=== PATIENT | female | born 1950 | race Caucasian/White ===

== ENCOUNTER → 2016-10-09 | Outpatient (CLI) | payer OTHER ==
[2016-10-09 10:30] LABS: BILIRUBIN,TOTAL 0.5 mg/dL (0.3-1.2); BUN/CREATININE RATIO 13.63 (6-20); CALCIUM 9.1 mg/dL (8.7-10.7); CREATININE 1.1 mg/dL (0.50-1.20); LDL CHOLESTEROL,CALCULATED 43.6 mg/dL; POTASSIUM 4.1 meq/L (3.8-5.2); TOTAL PROTEIN 6.5 g/dL (6.1-8.0)
[2016-10-09 10:31] LABS: HEMOGLOBIN A1C 7.38 % (4.2-6.0); MEAN BLOOD GLUCOSE (CALC) 159.754 mg/dL
== END ==
LOC: MOB LAB 07:59
PROVIDERS: ATTEND Internal Medicine
DX: E08.8 Diabetes mellitus due to underlying condition with unspecified complications (principal); E78.2 Mixed hyperlipidemia; I10 Essential (primary) hypertension; R09.89 Other specified symptoms and signs involving the circulatory and respiratory systems
CPT/HCPCS: 36415; 80048; 80061; 80076; 83036

== ENCOUNTER → 2016-10-11 | Outpatient (CLI) | payer OTHER | LOC: MMPC 10:00 | PROVIDERS: ATTEND Neurological Surgery | DX: M54.5 Low back pain (principal); G62.9 Polyneuropathy, unspecified; E53.8 Deficiency of other specified B group vitamins | CPT/HCPCS: 99212; G0463 ==

== ENCOUNTER → 2016-10-17 | Outpatient (CLI) | payer OTHER | LOC: MOB LAB 07:48 | PROVIDERS: ATTEND Internal Medicine | DX: R79.89 Other specified abnormal findings of blood chemistry (principal) | CPT/HCPCS: 36415; 83921 ==

== ENCOUNTER → 2016-10-19 | Outpatient (CLI) | payer OTHER ==
--- NOTE | 2016-10-22 12:20 | DI ---
SPECT/CT C-SPINE W/O CONTRAST,10/19/2016 11:27 AM: Clinical History: Cervical facet arthropathy. Previous Exam: MRI lumbar spine performed August 15, 2016 Radiopharmaceutical: 30.4 mCi of technetium 99m MDP. Findings: Multiple helically acquired CT images are obtained through the cervical spine without contrast. There are few calcified granulomas. A few peripheral vascular calcifications are seen. There are a few coronary artery calcifications seen. Minimal degenerative changes of the spine are seen to include some facet arthropathy at the T7 level. Patient is status post cholecystectomy. Moderate stool is noted throughout the colon. There is some increased uptake involving the right wrist and both elbows. There is some focal increas ed uptake of the left elbow. The abdomen demonstrates a normal noncontrast appearance. There are some mild degenerative changes of the pelvis. There is increased uptake involving the talus of the right ankle. There is moderate stool throughout the colon. There are coronary artery calcifications and peripheral vascular calcifications. The paranasal sinuses are unremarkable. Impression: 1. Increased uptake involving the right talus. 2. Mild degenerative changes of the hallux bilaterally. 3. Mild degenerative changes of the elbows and wrists.
== END ==
LOC: NM 11:24
PROVIDERS: ATTEND Neurological Surgery
DX: M54.2 Cervicalgia (principal); M54.5 Low back pain; M47.26 Other spondylosis with radiculopathy, lumbar region; M47.814 Spondylosis without myelopathy or radiculopathy, thoracic region
CPT/HCPCS: 72125; 72128; 72131; A9503

== ENCOUNTER → 2016-10-22 | Outpatient (CLI) | payer OTHER | LOC: MMPC 11:11 | PROVIDERS: ATTEND Internal Medicine | DX: Z01.818 Encounter for other preprocedural examination (principal); E11.9 Type 2 diabetes mellitus without complications; Z79.4 Long term (current) use of insulin; H26.9 Unspecified cataract; I10 Essential (primary) hypertension; E78.2 Mixed hyperlipidemia; R09.89 Other specified symptoms and signs involving the circulatory and respiratory systems; R01.1 Cardiac murmur, unspecified; E66.3 Overweight; E53.8 Deficiency of other specified B group vitamins; F41.8 Other specified anxiety disorders; M47.816 Spondylosis without myelopathy or radiculopathy, lumbar region | CPT/HCPCS: 99214; G0463 ==

== ENCOUNTER 2016-10-29 05:51 | Day surgery (SDC) | payer OTHER ==
[~2016-10-29 05:51] MED LIST: LIDOCAINE W/ SODIUM BICARB 0.5 ML SYR ONE; Lactated Ringers 1,000 ML PRIMARY IV ONE
[2016-10-29] MEDS ORDERED: PROPOFOL 10 MG/1 ML (200 MG/20 ML) VIAL IV ONE (06:00)
[2016-10-29 08:24] VITALS: RESP 18; TEMP 97.5
== END 2016-10-29 08:22 | disposition home or self-care (01) ==
LOC: SDSC 05:51
PROVIDERS: ATTEND Ophthalmology
DX: H25.11 Age-related nuclear cataract, right eye (principal)
CPT/HCPCS: 00142; 66984; J2704; J7120

== ENCOUNTER → 2017-01-09 | Outpatient (CLI) | payer OTHER | LOC: MMPC 09:00 | PROVIDERS: ATTEND Physician Assistant Medical | DX: K08.89 Other specified disorders of teeth and supporting structures (principal) | CPT/HCPCS: 99213; G0463 ==

== ENCOUNTER → 2017-01-14 | Outpatient (CLI) | payer OTHER | LOC: MMPC 11:11 | PROVIDERS: ATTEND Internal Medicine | DX: R11.11 Vomiting without nausea (principal); I35.2 Nonrheumatic aortic (valve) stenosis with insufficiency; I51.7 Cardiomegaly; M47.816 Spondylosis without myelopathy or radiculopathy, lumbar region; F32.9 Major depressive disorder, single episode, unspecified; D12.6 Benign neoplasm of colon, unspecified; E11.36 Type 2 diabetes mellitus with diabetic cataract; Z79.4 Long term (current) use of insulin | CPT/HCPCS: 99214; G0463 ==

== ENCOUNTER → 2017-01-15 | Outpatient (CLI) | payer OTHER ==
[2017-01-15 08:17] LABS: BASOPHILS # (AUTO) 0.09 10*3/UL; BASOPHILS % (AUTO) 0.8 % (0-1); EOSINOPHILS # (AUTO) 0.39 10*3/UL; EOSINOPHILS % (AUTO) 3.7 % (0-8); HEMATOCRIT 38.4 % (37.0-47.0); HEMOGLOBIN 12.7 g/dL (12.0-16.0); MEAN CORPUSCULAR HEMOGLOBIN 27.9 PG (27-31); MEAN CORPUSCULAR HGB CONC 33.1 g/dL (33-37); MEAN CORPUSCULAR VOLUME 84.4 FL (81-99); MEAN PLATELET VOLUME 9.8 FL (7.4-12.2); MONOCYTES # (AUTO) 0.91 10*3/UL (0.3-0.8); MONOCYTES % (AUTO) 8.5 % (5-15); NEUTROPHILS # (AUTO) 4.79 10*3/UL; NEUTROPHILS % (AUTO) 44.9 % (50-80); RED BLOOD COUNT 4.55 10^6/uL (4.20-5.40)
[2017-01-15 08:21] LABS: PLATELET MORPHOLOGY COMMENT NORMAL MORPHOLOGY (NORM); RBC MORPHOLOGY COMMENT NORMAL MORPHOLOGY (NORM); WBC MORPHOLOGY COMMENT NORMAL MORPHOLOGY (NORM)
[2017-01-15 08:26] LABS: BUN/CREATININE RATIO 19.41 (6-20); CALCIUM 9.7 mg/dL (8.7-10.7); SERUM ALBUMIN 3.7 g/dL (3.5-4.8)
[2017-01-15 08:33] LABS: HEMOGLOBIN A1C 7.49 % (4.2-6.0)
== END ==
LOC: LAB 07:53
PROVIDERS: ATTEND Internal Medicine
DX: E11.9 Type 2 diabetes mellitus without complications (principal); Z79.4 Long term (current) use of insulin; R11.14 Bilious vomiting
CPT/HCPCS: 36415; 80053; 83036; 83690; 85025

== ENCOUNTER → 2017-01-22 | Outpatient (CLI) | payer OTHER | LOC: MMPC 11:11 | PROVIDERS: ATTEND Internal Medicine | DX: E11.36 Type 2 diabetes mellitus with diabetic cataract (principal); M47.816 Spondylosis without myelopathy or radiculopathy, lumbar region; K21.9 Gastro-esophageal reflux disease without esophagitis; I10 Essential (primary) hypertension; I35.2 Nonrheumatic aortic (valve) stenosis with insufficiency; Z79.4 Long term (current) use of insulin | CPT/HCPCS: 99213; G0463 ==

== ENCOUNTER 2017-01-28 05:57 | Day surgery (SDC) | payer OTHER ==
[2017-01-28] MEDS ORDERED: PROPOFOL 10 MG/1 ML (200 MG/20 ML) VIAL IV ONE (06:00)
[2017-01-28 08:26] VITALS: RESP 16; TEMP 97.6
== END 2017-01-28 08:18 | disposition home or self-care (01) ==
LOC: SDSC 05:57
PROVIDERS: ATTEND Ophthalmology
DX: H25.12 Age-related nuclear cataract, left eye (principal)
CPT/HCPCS: 66984; J2704; J7120

== ENCOUNTER → 2017-04-24 | Outpatient (CLI) | payer OTHER ==
[2017-04-24 12:44] LABS: BASOPHILS # (AUTO) 0.11 10*3/UL; BASOPHILS % (AUTO) 1.2 % (0-1); EOSINOPHILS # (AUTO) 0.35 10*3/UL; EOSINOPHILS % (AUTO) 3.8 % (0-8); HEMATOCRIT 36.1 % (37.0-47.0); HEMOGLOBIN 11.7 g/dL (12.0-16.0); LYMPHOCYTES # (AUTO) 3.47 10*3/uL; MEAN CORPUSCULAR HEMOGLOBIN 28.4 PG (27-31); MEAN CORPUSCULAR HGB CONC 32.4 g/dL (33-37); MEAN CORPUSCULAR VOLUME 87.6 FL (81-99); MEAN PLATELET VOLUME 9.9 FL (7.4-12.2); MONOCYTES # (AUTO) 1.04 10*3/UL (0.3-0.8); MONOCYTES % (AUTO) 11.4 % (5-15); NEUTROPHILS # (AUTO) 4.14 10*3/UL; NEUTROPHILS % (AUTO) 45.3 % (50-80); RED BLOOD COUNT 4.12 10^6/uL (4.20-5.40)
[2017-04-24 12:46] LABS: PLATELET MORPHOLOGY COMMENT NORMAL MORPHOLOGY (NORM); RBC MORPHOLOGY COMMENT NORMAL MORPHOLOGY (NORM); WBC MORPHOLOGY COMMENT NORMAL MORPHOLOGY (NORM)
[2017-04-24 12:55] LABS: HEMOGLOBIN A1C 7.02 % (4.2-6.0)
[2017-04-24 13:07] LABS: BUN/CREATININE RATIO 20.76 (6-20); CALCIUM 9.3 mg/dL (8.7-10.7)
== END ==
LOC: MOB LAB 12:09
PROVIDERS: ATTEND Internal Medicine
DX: E08.65 Diabetes mellitus due to underlying condition with hyperglycemia (principal); Z79.4 Long term (current) use of insulin; D47.3 Essential (hemorrhagic) thrombocythemia; R94.4 Abnormal results of kidney function studies; M47.816 Spondylosis without myelopathy or radiculopathy, lumbar region; I35.2 Nonrheumatic aortic (valve) stenosis with insufficiency; G57.81 Other specified mononeuropathies of right lower limb; K21.9 Gastro-esophageal reflux disease without esophagitis
CPT/HCPCS: 36415; 80048; 83036; 85025

== ENCOUNTER → 2017-05-07 | Outpatient (CLI) | payer OTHER | LOC: MOB LAB 13:21 | PROVIDERS: ATTEND Internal Medicine | DX: D64.9 Anemia, unspecified (principal) | CPT/HCPCS: 36415; 82607; 82746; 83540; 83550 ==

== ENCOUNTER 2019-04-21 11:15 | Inpatient (IN) ==
[~2019-04-21 11:15] MED LIST changes: +BUPivacaine Liposome/PF (Exparel) Inj 20ml vial INFIL ONE; +Clindamycin 900mg (Premix) 900 MG/50 ML BAG IV ONE; +LIDOCAINE W/ SODIUM BICARB 0.5 ML SYR SUBD ONE; +Nasal Sanitizer POPSWAB ampule 3 AMP (Nozin) PREOP DOSE ENOS SCH
[2019-04-21] MEDS ORDERED: fentaNYL Inj 100 MCG/2 ML VIAL ONE (11:39)
[2019-04-21] MEDS ORDERED: MIDAZOLAM HCL 2 MG/2 ML VIAL ONE (11:39)
[2019-04-21] MEDS ORDERED: ROCURONIUM 10 MG/1 ML - 5 ML VIAL IVP ONE (11:41)
[2019-04-21] MEDS ORDERED: ONDANSETRON 4 MG/2 ML VIAL ONE (11:42)
[2019-04-21] MEDS ORDERED: KETOROLAC 30 MG/1 ML VIAL ONE (11:42)
[2019-04-21] MEDS ORDERED: PROPOFOL 10 MG/1 ML (200 MG/20 ML) VIAL IV ONE (11:42)
[2019-04-21] MEDS ORDERED: LIDOCAINE MPF 2% - 5 ML (20 MG/1 ML) ONE (11:42)
[2019-04-21] MEDS ORDERED: SUGAMMADEX SODIUM 200 MG/2 ML VIAL IV ONE (11:42)
[2019-04-21] MEDS ORDERED: BUPivacaine Liposome/PF (Exparel) Inj 20ml vial INFIL ONE ×2 (11:45→16:33)
[2019-04-21] MEDS ORDERED: BUPivacaine Inj 0.5% PF (5mg/ml) 30ml vial ONE (11:45)
[2019-04-21] MEDS: Lactated Ringers 1,000 ML PRIMARY IV SCH ×2 (11:45→19:12)
[2019-04-21 11:56] LABS: Hematocrit [HCT] 35.5 % (37.0-47.0); Hemoglobin [HGB] 11.6 g/dL (12.0-16.0); MEAN CORPUSCULAR HGB CONC 32.7 g/dL (33-37); MEAN CORPUSCULAR VOLUME 86.4 FL (81-99); MEAN PLATELET VOLUME 9.3 FL (7.4-12.2); RED BLOOD COUNT 4.11 10^6/uL (4.20-5.40)
[2019-04-21 12:09] LABS: NEUTROPHILS % (MANUAL) 55 % (50-80)
[2019-04-21 12:10] LABS: BAND NEUTROPHILS % 0 % (0-10); BASOPHILS % (MANUAL) 1 % (0-1); EOSINOPHILS % (MANUAL) 0 % (0-8); MONOCYTES % (MANUAL) 10 % (0-12); PLATELET MORPHOLOGY COMMENT NORMAL MORPHOLOGY (NORM); RBC MORPHOLOGY COMMENT NORMAL MORPHOLOGY (NORM); WBC MORPHOLOGY COMMENT NORMAL MORPHOLOGY (NORM)
[2019-04-21 12:16] LABS: BUN/CREATININE RATIO 18.57 (6-20); SERUM ALBUMIN 3.5 g/dL (3.5-4.8)
--- NOTE | 2019-04-21 12:26 | CRNA.PROCE ---
Nerve Block Documentation - - Type of Nerve Block Used: Left Interscalene Block Position for Nerve Block: Supine Moniters Used During Block: EKG, SPO2, NIBP Oxygen Supplemented: Yes Sedation Used - Enter Amount in Comment Field [ANES.SEDAT]: Midazolam (mg): Yes (2), Fentanyl (mcg): Yes (100) Skin Prep Used: ChloroPrep Nerve Block Needle Used: 80 mm ProBlk II Local Anesthetic - Enter Amt in Comment Field [ANES.LOCNB]: 0.5 % Bupivacaine Plain (mL): Yes (15), Other Anesthetic: Yes (Exparel 15ml) - - PreOp Block : Time In: 12:12 PreOp Block : Time Out: 12:25 Anesthesia Time - Other Weight: 66.678 kg Height: 5 ft 3 in Body Mass Index (BMI): 26.0
[2019-04-21] MEDS ORDERED: BUPivacaine Inj 0.25% PF - 10ml vial ONE (12:35)
[2019-04-21] MEDS ORDERED: ePHEDrine Inj 50 MG/ML AMP ONE (13:38)
[2019-04-21] MEDS ORDERED: Lactated Ringers 1,000 ML PRIMARY IV ONE (15:09)
--- NOTE | 2019-04-21 17:28 | ORTHO.OP ---
Surgery Date: 04/21/19 Preoperative Diagnosis: Displaced left supracondylar humerus fracture Postoperative Diagnosis: Same Procedure: Reduction internal fixation of left supracondylar humerus fracture #2 cubital tunnel release Surgeon: Georgina Tian MD Superintendent [employer]: CAROLINA Mackay Anesthesia Provider: Joshua Lo MD Anesthesia Type: General, Regional Estimated Blood Loss (mL): 30 Fluids: 1500 mL crystalloid, urine output 200 mL, EBL 150 mL. Complications: None Operative Summary: Extubated and taken recovery room in stable condition.
[2019-04-21] MEDS ORDERED: CALCIUM CARBONATE 500 MG (TUMS) CHEWABLE TABLET PO PRN ×2 (17:32→20:33)
[2019-04-21] MEDS ORDERED: Ondansetron ODT Tab 8 MG TAB PO PRN (17:32)
[2019-04-21] MEDS ORDERED: ONDANSETRON 4 MG/2 ML VIAL IVP PRN ×3 (17:32→20:33)
[2019-04-21] MEDS ORDERED: ACETAMINOPHEN 325 MG TABLET PO PRN ×2 (17:32→20:33)
[2019-04-21] MEDS ORDERED: BISACODYL 5 MG TABLET PO PRN (17:32)
[2019-04-21] MEDS ORDERED: Prochlorperazine Tab 10 MG TAB PO PRN (17:32)
[2019-04-21] MEDS ORDERED: HYDROcodone-APAP 7.5 MG-325 MG TABLET PO PRN (17:32)
[2019-04-21] MEDS ORDERED: IBUPROFEN 400 MG TABLET PO PRN (17:32)
[2019-04-21] MEDS ORDERED: BISACODYL 10 MG SUPPOSITORY RECTAL PRN (17:32)
[2019-04-21] MEDS ORDERED: MAG HYDROX/AL HYDROX/SIMETH 30 ML SUSP PO PRN (17:32)
[2019-04-21] MEDS ORDERED: diphenhydrAMINE 25 MG CAPSULE PO PRN (17:32)
--- NOTE | 2019-04-21 17:48 | CRNA.PROGR ---
Anesthesia Time - Procedure/Recovery Time Start Date: 04/21/19 End Date: 04/21/19 Anesthesia : Time In: 12:59 Anesthesia : Time Out: 17:39 Anesthesia : Total Time: 280 - Block Time Start Date: 04/21/19 End Date: 04/21/19 PreOp Block : Time In: 12:12 PreOp Block : Time Out: 12:25 PreOp Block : Total Time: 13 - Total Anesthesia Time Total Anesthesia Time (minutes): 293 - Other Weight: 66.678 kg Height: 5 ft 3 in Body Mass Index (BMI): 26.0 Physical Status: P3 Anesthesia Type: General Anesthesia : ET
--- NOTE | 2019-04-21 17:49 | CRNA.PROGR ---
Anesthesia Recovery Phase I - Post Anesthesia Evaluation Patient's Condition on Arrival in Phase I: Stable Patient's Condition on Arrival in Phase II: Stable (ET tube into pacu. Suctioned extubated in PACU.)
--- NOTE | 2019-04-21 17:49 | CRNA.PROGR ---
Post Anesthesia Phase II - Post Anesthesia Phase II Patient Stable and Discharged To: Med/Surg Temperature: 97.1 F Pulse Rate: 68 Respiratory Rate: 11 Blood Pressure: 136/60 Pulse Ox: 90 Total Eliaz Score at Discharge: 9 Post Anesthesia Discharge Criteria Met: Yes
[2019-04-21] MEDS ORDERED: LIDOCAINE W/ SODIUM BICARB 0.5 ML SYR SUBD PRN ×2 (18:11→20:33)
[2019-04-21] MEDS ORDERED: fentaNYL Inj 100 MCG/2 ML VIAL IVP PRN (18:11)
[2019-04-21] MEDS ORDERED: ATROPINE SULFATE 0.4 MG/1 ML VIAL IVP PRN (18:11)
--- NOTE | 2019-04-21 18:13 | CRNA.PROGR ---
Anesthesia Recovery Phase I - Post Anesthesia Evaluation Patient's Condition on Arrival in Phase I: Stable Patient's Condition on Arrival in Phase II: Stable (ET tube into pacu. Suctioned extubated in PACU.) Pain Level: 3 (medicated. suctionedand extubated in phase1)
[2019-04-21] MEDS: HYDROmorphone 2 MG/1 ML IVP PRN ×2 (18:15→18:26)
[2019-04-21] MEDS ORDERED: Lactated Ringers 1,000 ML PRIMARY IV SCH (18:15)
[2019-04-21] MEDS ORDERED: Clindamycin 900mg (Premix) 900 MG/50 ML BAG IV SCH (19:30)
[2019-04-21] MEDS ORDERED: RASAGILINE MESYLATE 1 MG PO SCH (20:45)
--- NOTE | 2019-04-21 20:52 | PDOC ---
HPI - History of Present Illness Date of Service: 04/21/19 Time of Service: 20:43 Chief Complaint: Left arm pain and falls History of Present Illness: This very pleasant 69-year-old female with history of carotid artery disease status post right carotid endarterectomy, hypertension, diet-controlled diabetes, recently diagnosed Parkinson's disorder, amongst other issues, who is accompanied by her here post ORIF of the left distal humerus. The story actually dates back really to some time around August,, through October,, when the patient had noticeably changed in terms of her motion and mobility. She apparently has had progressive weakening and inability to get up from a chair without assistance from her . She cannot make it up us flight of stairs without the assistance of her now. She had a pill roll tremor develop within the last 8 months or so although on my review of the record, when they saw neurology in November, it was felt that the tremor had developed sometime in May 2018. Be that as it may, the patient was started on carbidopa levodopa, and rasagiline, but she continues to have worsened symptoms of bradykinesia, frozen states, and inability to move. She had a fall 3-4 weeks ago now in which she fractured the distal portion of her left humerus. Initially, her and her did not seek care. When they finally did, the question was to try and heal this up conservatively versus surgical intervention but the patient had continued pain. She opted for open reduction and internal fixation today. Interestingly and unfortunately, the patient was not able to get her carbidopa levodopa filled and there were some problems with communication between the pharmacist, the patient's primary physician, and the neurologist, and the patient's pharmacist would not confirm the change in dose from prior prescription and she has been off of her carbidopa levodopa over the last few days. She's had increasing numbers of falls since that time she's been off of her medication as well. In fact her states that she fell twice here recently. She is not able to do physical therapy outside of the hospital due to cost and we did income. She tries to do home physical therapy program that her takes her through, but she is inconsistently able to do that due to fatigue. She has moderate to severe aortic stenosis that has not been reimaged in terms of echocardiogram since 2016. There were no described fevers, or chills. The patient has been on chronic narcotics despite her diagnosis of Parkinson's disorder, and she states that she's had sciatica, but there is no herniated disks on my review of her MRI scan from 2016. She does have chronic constipation. Luckily, at this point, no hallucinations. This is been persistent in terms of no hallucinations in my review of her record since at least November 2018. The patient's is having to lift the patient from her chair to help her stand up. It was reported in prior records on my review that she has been using assistive devices but has been failing at home even with those devices in terms of prevention of falls. She denies confusion or dementia symptoms although it is well documented that dilia daley has lost some short term memory and has only some mild cognitive impairment. She had a very flat feces on my examination here tonight. Postoperatively today, she has no chest pain, no shortness of breath. She has had nausea. She has extremely poor balance problems and apparently gets "dizzy" frequently. The patient's states he has not noticed much of a change on medications in the past several weeks. Past Medical History Medical History: 1. Parkinson's disease. 2. Aortic stenosis moderate to severe last echocardiogram 2016. 3. History of carotid artery disease status post right carotid endarterectomy, notably not on any antiplatelets but recent ultrasound in 2016 did not reveal any evidence of carotid artery disease at that time. 4. Hypertension. 5. Hypercholesterolemia. 6. Based on my review of record, chronic kidney disease, stage III creatinine. clearance around 40 mL/m. 7. Diabetes mellitus, type II, diet controlled. 8. Chronic constipation Surgical History: 1. Tubal ligation. 2. Wrist surgery. 3. Cholecystectomy. 4. Status post appendectomy. 5. Cataracts Pertinent Family History: No prior history of Parkinson's in the family. She has a daughter that of ovarian cancer. Past Social History: Patient is . Had 3 children but 2 unfortunately a past. She does not smoke or drink alcohol. Lives in [place], [place]. Used to work as a [employer]. Tobacco Use: Never Smoker In the Past 12 Months, Have Used or Abuse Any of the Following Substance: Opiate Pain Medication Alcohol Use: None Medication / Allergies Home Medications: Home Medications Medication Instructions Recorded Confirmed Pen Needle, Diabetic [Pen Needle] 1 [facility] PRN #100 unit 10/25/16 04/20/19 metoclopramide 10 mg tablet 10 mg PO QID #120 tab 05/05/18 04/20/19 pantoprazole 40 mg tablet,delayed 40 mg PO QHS #90 tab 05/05/18 04/20/19 release docusate sodium 50 mg capsule 50 mg PO QDAY 10/07/18 04/20/19 calcium carbonate 500 mg (1,250 1 tab PO QDAY #30 tab 10/14/18 04/20/19 mg)-vitamin D3 400 unit tablet simvastatin 20 mg tablet 20 mg PO QDAY tab 11/03/18 04/20/19 lisinopril 20 mg tablet 20 mg PO QHS #90 tab-cap 12/02/18 04/20/19 blood sugar diagnostic strips 1 strip MISCELLANEOUS BID PRN #200 12/05/18 04/20/19 strip lancets 1 ea MISCELLANEOUS BID PRN #200 ea 12/05/18 04/20/19 lubiprostone 8 mcg capsule 8 mcg PO BID #60 cap 12/26/18 04/20/19 bupropion HCl SR 150 mg tablet,12 150 mg PO BID #60 tab-cap 01/06/19 04/20/19 hr sustained-release carbidopa 25 mg-levodopa 100 mg 2 tab PO QID tab 02/16/19 04/20/19 tablet gabapentin 100 mg capsule 100 mg PO TID #90 cap 02/23/19 04/20/19 morphine ER 30 mg tablet,extended 30 mg PO Q12H #60 tab 04/15/19 04/20/19 release rasagiline 1 mg tablet 1 mg PO QDAY 04/15/19 04/20/19 lisinopril 20 mg tablet 20 mg PO QDAY 04/20/19 04/20/19 lubiprostone 8 mcg capsule 8 mcg PO BID 04/20/19 04/20/19 morphine sulfate ER #1 ea 04/20/19 04/20/19 rasagiline 1 mg tablet 1 mg PO QDAY 04/20/19 04/20/19 Allergies/Adverse Reactions: Allergies Allergy/AdvReac Type Severity Reaction Status Date / Time latex Allergy Severe Rash Verified 04/20/19 09:11 Penicillins Allergy Severe Anaphylaxis Verified 04/20/19 09:11 Tetanus Vaccines and Toxoid Allergy Severe Anaphylaxis Verified 04/20/19 09:11 Sulfa (Sulfonamide Allergy Unknown Anaphylaxis Verified 04/20/19 09:11 Antibiotics) Review of Systems - Review of Systems All Systems: Reviewed & No Additional Complaints Except as Stated (I did a 12 point review systems and it was negative other than that discussed below and in the history of present illness.) - Respiratory Respiratory: REPORTS: Negative System Review - Cardiovascular Cardiovascular: REPORTS: Other (The patient did not recall that she had had a murmur. The patient's stated that the murmur was chronic and on my review of the record, it appears that it's consistent with moderate to severe aortic stenosis.) - Gastrointestinal Gastrointestinal / Abdominal: REPORTS: Constipation (Chronic issue) - Genitourinary Genitourinary: REPORTS: Negative System Review - Neurological Neurologic: REPORTS: Tremors, Weakness, Dizziness, Difficulty Walking, Incoordination Exam - Vitals Vital Signs: Vital Signs Temperature 97.2 F Temperature Source Oral Pulse Rate [Pulse Oximeter] 72 Pulse Rate 81 Respiratory Rate 20 Blood Pressure [Right Arm] 159/61 Blood Pressure 136/62 Pulse Ox 95 Oxygen Flow Rate 3 Oxygen Delivery Method Nasal Cannula Height 5 ft 3 in Weight 147 lb - General General Appearance: No Acute Distress, Cooperative - Head Head Exam: Normal Inspection, Normocephalic, Atraumatic - Eye Eye Exam: POSITIVE: No Scleral Icterus - ENT ENT Exam: POSITIVE: Mucous Membranes Moist - Neck Neck Exam: Normal Inspection, No Tenderness, No Lymphadenopathy, No Thyromegaly, JVP is not Raised - Respiratory Respiratory Exam: POSITIVE: Clear to Auscultation - Bilaterally, Breathing Non Labored - Cardiovascular Cardiovascular Exam: POSITIVE: RRR, No Clicks, No Gallops, No Rubs, Systolic Murmur, No JVD - GI/Abdominal GI/Abdominal Exam: POSITIVE: Normal Bowel Sounds, Non Tender, Non Distended, Soft - Rectal Rectal Exam: POSITIVE: Deferred - External Exam: POSITIVE: Deferred Exam: POSITIVE: Deferred - Extremities Extremities Exam: POSITIVE: No Edema Present, No Cyanosis Present, Clubbing Present Additional Extremities Exam Details: Patient's left upper extremity is dressed, dressing is clean, dry, intact, sling in place. Cryo/Cuff and place. - Neurological Neurological Exam: POSITIVE: Alert, Oriented x 3, No Facial Droop, Speech Intact / Clear, Moves All Extremities Equally Additional Neurological Exam Details: She cannot initiate movement upon command very well. Bradykinesis, stiff - Psychiatric Psychiatric Exam: POSITIVE: Normal Mood, Flat Affect - Central Line Examination Central Line Present on Admission: No Results - Labs CBC and BMP: 04/21/19 11:54 04/21/19 11:54 Additional Lab Results: Laboratory Results 04/21/19 04/21/19 04/21/19 11:54 11:54 11:54 WBC 6.96 RBC 4.11 L Hgb 11.6 L Hct 35.5 L MCV 86.4 MCH 28.2 MCHC 32.7 L RDW Std Deviation 42.0 RDW Coeff of Jose 13.5 Plt Count 237 MPV 9.3 Neutrophils % (Manual) 55 Band Neutrophils % 0 Lymphocytes % (Manual) 34 Monocytes % (Manual) 10 Eosinophils % (Manual) 0 Basophils % (Manual) 1 Metamyelocytes % Not Reportable Myelocytes % Not Reportable Promyelocytes % Not Reportable Blast Cells Not Reportable WBC Morphology Comment Normal morphology Plt Morphology Comment Normal morphology RBC Morph Comment Normal morphology PT 12.1 INR 1.05 Sodium 139 Potassium 4.6 Chloride 105 Carbon Dioxide 26 Anion Gap 8 BUN 26 H Creatinine 1.4 H Estimated GFR 37 BUN/Creatinine Ratio 18.57 Glucose 124 H Calculated Osmolality 293.0 H Calcium 9.1 Total Bilirubin 0.5 AST 15 ALT 10 Alkaline Phosphatase 119 Total Protein 6.6 Albumin 3.5 Globulin 3.1 Albumin/Globulin Ratio 1.10 L Assessment and Plan - Patient Problems (1) Parkinsons disease Current Visit: Yes Status: Acute Code(s): G20 - Parkinson's disease (2) Hypercholesterolemia Current Visit: Yes Status: Acute Code(s): E78.00 - Pure hypercholesterolemia, unspecified (3) Left supracondylar humerus fracture Current Visit: Yes Status: Acute Code(s): S42.412A - Displaced simple supracondylar fracture without intercondylar fracture of left humerus, initial encounter for closed fracture Qualifiers: Encounter type: initial encounter Fracture type: closed Qualified Code(s): S42.412A - Displaced simple supracondylar fracture without intercondylar fracture of left humerus, initial encounter for closed fracture (4) Falls Current Visit: Yes Status: Acute Code(s): W19.XXXA - Unspecified fall, initial encounter Qualifiers: Encounter type: subsequent encounter Qualified Code(s): W19.XXXD - Unspecified fall, subsequent encounter (5) Chronic pain syndrome Current Visit: Yes Status: Acute Code(s): G89.4 - Chronic pain syndrome (6) Degenerative arthritis of lumbar spine Current Visit: Yes Status: Acute Code(s): M47.816 - Spondylosis without myelopathy or radiculopathy, lumbar region Qualifiers: Spinal osteoarthritis complication: without myelopathy or radiculopathy Qualified Code(s): M47.816 - Spondylosis without myelopathy or radiculopathy, lumbar region (7) Aortic valve stenosis with insufficiency Current Visit: Yes Status: Chronic Onset Date: 01/14/17 Code(s): I35.2 - Nonrheumatic aortic (valve) stenosis with insufficiency Qualifiers: Cardiac valve disease etiology: etiology unspecified Qualified Code(s): I35.2 - Nonrheumatic aortic (valve) stenosis with insufficiency (8) Chronic GERD Current Visit: Yes Status: Chronic Onset Date: 08/01/16 Code(s): K21.9 - Gastro-esophageal reflux disease without esophagitis (9) Essential hypertension Current Visit: Yes Status: Chronic Onset Date: 08/01/16 Code(s): I10 - Essential (primary) hypertension (10) Type 2 diabetes mellitus Current Visit: Yes Status: Acute Code(s): E11.9 - Type 2 diabetes mellitus without complications Qualifiers: Diabetes mellitus correction insulin use: without exterminator helper termite use Diabetes mellitus complication status: without complication Qualified Code(s): E11.9 - Type 2 diabetes mellitus without complications - Assessment / Plan Additional Assessment/Plan Details: There are many significant issues during this hospital stay. First and foremost, the patient's Parkinson's disease seems to be advancing fairly progressively and rapidly. Patient is following more, the is endorsing a history of minimal improvement on medications at this point, and the resources for mainstays of Parkinson's therapy such as physical therapy are difficult for the patient and her to obtain. She's had a fracture of the left supracondylar portion of the humerus and required an open reduction internal fixation. This will be extremely difficult to do rehabilitation and the patient is not safe to go home and I see no other alternative but to keep the patient as an inpatient continue on aggressive physical therapy and occupational therapy plan while trying to ascertain the status of acute on chronic versus chronic medical issues such as aortic stenosis, diabetes mellitus, and chronic pain syndrome. I will resume medications for Parkinson's. May consider getting a faster follow-up for neurology as well. This includes carbidopa levodopa and rasagiline. luckily, no hallucinations. This all be significantly worsened with continued chronic narcotic administration. I have learned recently that tapering narcotics to discontinue them is not effective. So have to discuss this with the patient and her that I would suggest abrupt discontinuation and treatment of narcotic withdrawal symptoms. But we may have to wait until the patient is a little further out from surgery to do this. Patient would be an excellent Candidate for swing bed if can qualify. In terms of diabetes, check hemoglobin A1c to see how well controlled we are as I would like to optimize blood sugar management to help with wound healing. Terms of aortic stenosis, and the patient's tell me that the patient fatigues frequently during exercise and therapy at home, I wonder if this has progressed and may need to be addressed surgically or if the patient needs to be evaluated for a transaortic valve replacement. We'll start that process by getting an echocardiogram and the earliest I can do that would be tomorrow as we do not have service desk technician in place except for visiting service desk technician on Saturday and Fridays. I would like to simplify medications as much as possible and go through risks and benefits with the patient and her so that we can help them in terms of cost of there medical therapy. She was already taking 1 pill daily of the medication she was prescribed because they cannot afford to take it on a twice a day basis I think that was the amatiza. Labs in a.m. PT and OT. Case management. Patient really needs home evaluation and assessment, would benefit from a ramp, and probable assistive devices at home to help improve mobility is much as possible. Complex medical issues above, acute components not clearly defined, need for continued medical workup, definitely will take more than 2 midnights. Orthopedics consultation. Full code Plan above discussed with patient and her and they agree to proceed.
[2019-04-21] MEDS: MORPHINE SULFATE 30 MG PO SCH (21:00)
[2019-04-21] MEDS: LUBIPROSTONE 8 MCG PO SCH (21:00)
[2019-04-21] MEDS ORDERED: MORPHINE SULFATE 30 MG PO SCH (21:00)
[2019-04-21] MEDS ORDERED: LISINOPRIL 20 MG TABLET PO SCH (21:00)
[2019-04-21] MEDS: PANTOPRAZOLE 40 MG TABLET PO SCH (21:01)
[2019-04-21] MEDS: Simvastatin Tab 20 MG TAB PO SCH (21:01)
[2019-04-21] MEDS: Carbidopa/Levodopa 25/100mg Tab PO SCH (21:01)
[2019-04-21] MEDS: GABAPENTIN 100 MG CAPSULE PO SCH (21:02)
[2019-04-21] MEDS: BuPROPion SR Tab 150 MG TAB PO SCH (21:02)
[2019-04-21] MEDS: Metoclopramide Tab 10 MG TAB PO SCH (21:02)
[2019-04-21] MEDS: oxyCODONE/APAP 7.5/325 Tab 1 TAB TAB PO PRN (23:50)
[2019-04-22 04:46] LABS: BILIRUBIN,URINE SMALL (NEG); CLARITY,URINE CLEAR (CLEAR); COLOR,URINE YELLOW (Y); GLUCOSE, URINE (UA) NEGATIVE (NEG); OCCULT BLOOD,URINE NEGATIVE (NEG); PH,URINE 5.5 (5.0-8.5); PROTEIN,URINE NEGATIVE (NEG); UROBILINOGEN,URINE 0.2 EU/dL (0.2)
[2019-04-22 04:47] LABS: URINE SAMPLE TYPE CATH SPECIMEN
[2019-04-22 05:56] LABS: Hematocrit [HCT] 32.3 % (37.0-47.0); Hemoglobin [HGB] 10.6 g/dL (12.0-16.0); MEAN CORPUSCULAR HGB CONC 32.8 g/dL (33-37); MEAN CORPUSCULAR VOLUME 86.4 FL (81-99); MEAN PLATELET VOLUME 10.4 FL (7.4-12.2); RED BLOOD COUNT 3.74 10^6/uL (4.20-5.40)
[2019-04-22 06:00] LABS: BUN/CREATININE RATIO 19.23 (6-20); SERUM ALBUMIN 2.8 g/dL (3.5-4.8)
[2019-04-22 06:22] LABS: HEMOGLOBIN A1C 7.04 % (4.2-6.0)
[2019-04-22 06:29] LABS: BAND NEUTROPHILS % 3 % (0-10); BASOPHILS % (MANUAL) 0 % (0-1); EOSINOPHILS % (MANUAL) 1 % (0-8); MONOCYTES % (MANUAL) 1 % (0-12); NEUTROPHILS % (MANUAL) 80 % (50-80); PLATELET MORPHOLOGY COMMENT NORMAL MORPHOLOGY (NORM); RBC MORPHOLOGY COMMENT NORMAL MORPHOLOGY (NORM); WBC MORPHOLOGY COMMENT NORMAL MORPHOLOGY (NORM)
--- NOTE | 2019-04-22 07:56 | ORTHO.PROG ---
Last Taken Vital Signs: Vital Signs - Last Taken Temperature 97.7 F 04/22/19 04:14 Pulse Rate 76 04/22/19 04:14 Respiratory Rate 20 04/22/19 04:14 Blood Pressure 114/50 04/22/19 04:14 Pulse Ox 96 04/22/19 04:14 Subjective: Patient sitting up in bed. Feels pretty good. Not having much pain. Feels like her block is wearing off. Wants to eat breakfast. Objective: Vital signs stable patient afebrile. Left upper extremity is splinted. I removed the drain which showed minimal output. Neurovascular exam is intact. She is able to extend her fingers and able to abduct her fingers Assessment: Impression: Stable postop day 1 from ORIF distal humerus fracture. Plan: Plan: Is to therapy try to get her up today. I feel like she could probably go home whenever felt safe and indicated by Dr. Lau. She has a follow-up appointment to see me on April 29 8:45 AM.
[2019-04-22] MEDS: ENOXAPARIN SODIUM 30 MG/0.3 ML SYRINGE SUBCUT SCH (08:45)
[2019-04-22] MEDS: MORPHINE SULFATE 30 MG PO SCH ×2 (08:45→21:22)
[2019-04-22] MEDS: RASAGILINE MESYLATE 1 MG PO SCH (08:46)
[2019-04-22] MEDS: LUBIPROSTONE 8 MCG PO SCH ×2 (08:47→21:23)
[2019-04-22] MEDS: Metoclopramide Tab 10 MG TAB PO SCH ×4 (08:47→21:23)
[2019-04-22] MEDS: Calcium/Vit D 600mg/400u Tab 1 TAB TABLET PO SCH (08:47)
[2019-04-22] MEDS: BuPROPion SR Tab 150 MG TAB PO SCH ×2 (08:47→21:23)
[2019-04-22] MEDS: GABAPENTIN 100 MG CAPSULE PO SCH ×3 (08:47→21:22)
[2019-04-22] MEDS: Carbidopa/Levodopa 25/100mg Tab PO SCH ×4 (08:47→21:23)
[2019-04-22] MEDS: DOCUSATE 100 MG CAPSULE PO PRN (10:13)
[2019-04-22] MEDS: DOCUSATE SODIUM 50 MG PO SCH (10:24)
[2019-04-22] MEDS: oxyCODONE/APAP 7.5/325 Tab 1 TAB TAB PO PRN ×3 (11:26→23:14)
--- NOTE | 2019-04-22 12:31 | OPS CRUTCH ---
Referral Reason: [facility] O: The patient was issued an [facility] and instructed in its proper use and care. P: No further therapy is indicated at this time. MTDD
--- NOTE | 2019-04-22 14:09 | PDOC(PROG) ---
Date of Service: 04/22/19 Time of Service: 14:03 Interval History: Patient seen, evaluated earlier. Discussed with RN, therapy, , and patient. Pain and arm seems controlled at this point. No chest pain, no shortness breath, and no nausea or vomiting. She has been getting food stuck in the back of her throat at home and seems worse after airway control for her surgery. She has not had any swallowing evaluations. Her movement is not great, but improved from yesterday minimally. Objective : Data - Labs CBC and BMP: 04/22/19 05:20 04/22/19 05:20 Additional Lab Results: 04/22/19 04/22/19 04/22/19 04:23 05:20 05:20 Hemoglobin A1c 7.04 H Total Bilirubin 0.4 AST 17 ALT 14 Alkaline Phosphatase 91 CK-MB (CK-2) Total Protein 5.6 L Albumin 2.8 L Globulin 2.8 Albumin/Globulin Ratio 1.00 L Ur Culture Indicated? Culture not set 04/22/19 05:20 Hemoglobin A1c Total Bilirubin AST ALT Alkaline Phosphatase CK-MB (CK-2) 3.31 Total Protein Albumin Globulin Albumin/Globulin Ratio Ur Culture Indicated? Objective : Exam - General General Appearance: No Acute Distress, Cooperative Additional General Exam Details: Vital Signs - Last Taken Temperature 98.5 F 04/22/19 08:21 Pulse Rate 79 04/22/19 08:21 Respiratory Rate 20 04/22/19 08:21 Blood Pressure 112/42 04/22/19 08:21 Pulse Ox 94 04/22/19 13:00 - Eye Eye Exam: No Scleral Icterus - ENT ENT Exam: Mucous Membranes Moist - Neck Neck Exam: JVP is not Raised - Respiratory Respiratory Exam: Clear to Auscultation - Bilaterally, Breathing Non Labored - Cardiovascular Cardiovascular Exam: RRR, No Clicks, No Gallops, No Rubs, Systolic Murmur (Grade IV murmur), No JVD - GI/Abdominal GI/Abdominal Exam: Normal Bowel Sounds, Non Tender, Non Distended, Soft - Extremities Extremities Exam: No Clubbing Present, No Edema Present, No Cyanosis Present - Neurological Neurological Exam: Alert, Oriented x 3, No Facial Droop, Speech Intact / Clear Additional Neurological Exam Details: Pill roll tremor on right upper extremity - Psychiatric Psychiatric Exam: Flat Affect Assessment and Plan - Patient Problems (1) Aortic valve stenosis with insufficiency Current Visit: Yes Status: Chronic Onset Date: 01/14/17 Code(s): I35.2 - Nonrheumatic aortic (valve) stenosis with insufficiency Qualifiers: Cardiac valve disease etiology: etiology unspecified Qualified Code(s): I35.2 - Nonrheumatic aortic (valve) stenosis with insufficiency (2) Parkinsons disease Current Visit: Yes Status: Acute Code(s): G20 - Parkinson's disease (3) Hypercholesterolemia Current Visit: Yes Status: Acute Code(s): E78.00 - Pure hypercholestero lemia, unspecified (4) Left supracondylar humerus fracture Current Visit: Yes Status: Acute Code(s): S42.412A - Displaced simple supracondylar fracture without intercondylar fracture of left humerus, initial encounter for closed fracture Qualifiers: Encounter type: initial encounter Fracture type: closed Qualified Code(s): S42.412A - Displaced simple supracondylar fracture without intercondylar fracture of left humerus, initial encounter for closed fracture (5) Falls Current Visit: Yes Status: Acute Code(s): W19.XXXA - Unspecified fall, initial encounter Qualifiers: Encounter type: subsequent encounter Qualified Code(s): W19.XXXD - Unspecified fall, subsequent encounter (6) Chronic pain syndrome Current Visit: Yes Status: Acute Code(s): G89.4 - Chronic pain syndrome (7) Degenerative arthritis of lumbar spine Current Visit: Yes Status: Acute Code(s): M47.816 - Spondylosis without myelopathy or radiculopathy, lumbar region Qualifiers: Spinal osteoarthritis complication: without myelopathy or radiculopathy Qualified Code(s): M47.816 - Spondylosis without myelopathy or radiculopathy, lumbar region (8) Chronic GERD Current Visit: Yes Status: Chronic Onset Date: 08/01/16 Code(s): K21.9 - Gastro-esophageal reflux disease without esophagitis (9) Essential hypertension Current Visit: Yes Status: Chronic Onset Date: 08/01/16 Code(s): I10 - Essential (primary) hypertension (10) Type 2 diabetes mellitus Current Visit: Yes Status: Acute Code(s): E11.9 - Type 2 diabetes mellitus without complications Qualifiers: Diabetes mellitus alf insulin use: 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 If aortic stenosis is worse, may need cardiology evaluation to determine if patient would be candidate for transaortic valve replacement. Probably not a good surgical candidate from the standpoint of an open heart surgery. PT and OT. Patient's is extremely high fall risk. She is very weak and deconditioned, get short of breath often times with activities, and has overall poor movement. I think she would benefit from physical therapy and likely a swing bed. I recommended to the patient she get off all narcotics she would like to wait a little longer until she recovers more from the surgery and then she may be willing to do that. I did discuss with her that tapering has no benefit and discontinuation of narcotics, and that there were medications available for treatment of narcotic withdrawal, but I think overall narcotics will significantly worsen the patient's constipation, mental status, and functionality with Parkinson's disease. Her diabetes is well controlled currently.
--- NOTE | 2019-04-22 14:18 | PTI REPORT ---
Thank you for the referral of Gabby Rausch. She was seen on 04/22/19 for an inpatient evaluation status post left arm surgery and weakness. SUBJECTIVE: The patient is a 69-year-old female. The patient reports that she lives in [place] with her . Previously the patient required a lot of help from her ; she has been tip toe walking around her house per her . The patient has three stairs to get into her home. She doesn't use a walker and has fallen multiple times. The patient reports she was diagnosed with Parkinson's in October or November. The patient reports that she could walk household distances with her right behind her. PAST MEDICAL HISTORY: Past medical history can be found in the patient's medical record. OBJECTIVE FINDINGS: General observations: Nursing okayed treatment prior to PT. PT co-treated with OT today. The patient was on two liters of oxygen; she is not on oxygen at home. The patient has a sore on her sacrum that nursing is taking care of. The therapist recommends a ROHO cushion. Bed mobility: The patient required max assist x1 for supine to sit transfer to edge of bed. Sensation: Myotomes and dermatomes to bilateral lower extremities were normal. Transfers: The patient required mod assist x2 for sit to stand transfer. Ambulation: The patient was instructed to ambulate approximately 10 feet to her chair with min to mod assist x2. The patient tends to walk on her toes and demonstrated shakiness and loss of balance with gait. The patient demonstrated one loss of balance and was unable to self correct herself. With PT and OT assistance, forward motion was prevented. ASSESSMENT: The patient is a 69-year-old female that presents status post right arm surgery. The patient's prognosis for therapy is fair. Problem List: Decreased strength Decreased functional mobility Impaired balance Decreased endurance Short-Term Goals: To be met by discharge from inpatient: Patient will be independent with all transfers. Patient will be able to ambulate 150 feet with least restrictive assistive device. Patient will be able to tolerate 15 minutes of activity. Long-Term Goals: To be met following discharge from inpatient: Patient will benefit from outpatient physical therapy. TREATMENT PLAN: Patient will be seen B.I.D during the week and one time per day over the weekend as an inpatient for therapeutic exercise, functional activity, neuromuscular reeducation, gait training, and modalities as needed. INITIAL TREATMENT: Treatment today consisted of the initial evaluation. The patient was transferred to her chair. The patient was left in chair with chair alarm activated and call light within reach. SHAZIA
[2019-04-22] MEDS: PANTOPRAZOLE 40 MG TABLET PO SCH (21:22)
[2019-04-22] MEDS: Simvastatin Tab 20 MG TAB PO SCH (21:25)
--- NOTE | 2019-04-23 08:01 | ORTHO.PROG ---
Last Taken Vital Signs: Vital Signs - Last Taken Temperature 97.7 F 04/23/19 06:55 Pulse Rate 77 04/23/19 06:59 Respiratory Rate 16 04/23/19 06:55 Blood Pressure 133/59 04/23/19 06:55 Pulse Ox 94 04/23/19 06:59 Subjective: Patient was sitting on the commode when I went to see her. I will try her back later.
[2019-04-23] MEDS: ENOXAPARIN SODIUM 30 MG/0.3 ML SYRINGE SUBCUT SCH (08:33)
[2019-04-23] MEDS: MORPHINE SULFATE 30 MG PO SCH ×2 (08:33→20:11)
[2019-04-23] MEDS: DOCUSATE 100 MG CAPSULE PO PRN (08:33)
[2019-04-23] MEDS: GABAPENTIN 100 MG CAPSULE PO SCH ×3 (08:34→20:10)
[2019-04-23] MEDS: Calcium/Vit D 600mg/400u Tab 1 TAB TABLET PO SCH (08:34)
[2019-04-23] MEDS: RASAGILINE MESYLATE 1 MG PO SCH (08:34)
[2019-04-23] MEDS: LUBIPROSTONE 8 MCG PO SCH ×2 (08:34→20:10)
[2019-04-23] MEDS: Carbidopa/Levodopa 25/100mg Tab PO SCH ×4 (08:34→20:10)
[2019-04-23] MEDS: BuPROPion SR Tab 150 MG TAB PO SCH ×2 (08:34→20:10)
[2019-04-23] MEDS: Metoclopramide Tab 10 MG TAB PO SCH ×4 (08:34→20:10)
[2019-04-23] MEDS: DOCUSATE SODIUM 50 MG PO SCH (10:15)
--- NOTE | 2019-04-23 11:46 | DI ---
XR ESOPHAGRAM 04/23/2019 7:00 AM History: [facility] ^dysphagia, parkinsons ^modified barium swallow study. with OT Comparison: None. Procedure: This examination was performed in conjunction with Occupational Therapy. Cine images of th e pharynx were obtained in the AP and lateral projections. Total estimated dose was 10.862 mGy. Findings/Impression: Laryngeal penetration occurred with thin liquids. Mild esophageal dysmotility wa s incidentally noted. Please see Occupation Therapy provider report for details. Surgical clips project over the neck and there are multilevel degenerative endplate changes of the ce rvical spine.
--- NOTE | 2019-04-23 11:56 | DI ---
XR CXR 1VW 04/23/2019 11:02 AM HISTORY: [facility] ^hemoptysis Comparison: 01/08/2019. Findings: A single portable frontal view of the chest is submitted. Images demonstrate patchy right lung airspace disease, most dense in the right lateral lung base. The re is volume loss on the left with elevation of the left hemidiaphragm, left lung base atelectasis, a nd a small pleural effusion. The cardiomediastinal silhouette is at the upper limits of normal with b orderline pulmonary vascular congestion. Atheromatous calcifications are noted in the arch of the tor tuous thoracic aorta. The osseous structures are not significantly changed. Radiopaque material in th e distribution of the stomach is most likely barium associated with the patient's recent modified bar ium swallow study. Surgical clips project over the right upper quadrant. Impression: 1. Patchy right lung airspace disease. Repeat imaging is recommended 6 weeks following completion of therapy in order to ensure resolution. 2. Borderline cardiomegaly and vascular congestion could represent early pulmonary edema in the setti ng of heart failure. 3. Left lung volume loss with lung base atelectasis and a small pleural effusion.
[2019-04-23] MEDS ORDERED: LIDOCAINE HCL 2 % 10 ML JELLY URO-JECT TOPICAL PRN (14:23)
[2019-04-23] MEDS ORDERED: FUROSEMIDE 10 MG/1 ML - 2 ML VIAL IVP ONE (14:23)
--- NOTE | 2019-04-23 14:25 | PT.PROG ---
Progress Note Progress Note: S. Patient stated that she would go to the therapy gym. O. Patient was wheeled to the therapy gym where she performed seated exercises in the form of; marches, long arc quads, pillow squeezes, clam shells, heel toe raises all x 10 bilaterally Patient was left with OT for further therapy. A. Patient is weak and requires frequent rest breaks to recover from weakness, she would continue to benefit from skilled therapy to increase strength, endurance and safety at this time. P. continue POC.
--- NOTE | 2019-04-23 14:46 | OTI REPORT ---
Thank you for the referral of Gabby Rausch. She was seen on 04/22/19 for an occupational therapy inpatient evaluation status post arm surgery. SUBJECTIVE: The patient is a 69-year-old female who is being seen today secondary to falling at home and breaking her distal humerus. The patient's and Dr. Beltran came into the room during the evaluation. It was discussed that the patient is having a lot of increased difficulty at home. Her is having to care for her very frequently and actually walk her everywhere in the house. The patient is starting to tip toe on her toes, she has loss of balance, and she falls frequently. Her reports that she does have a chair that she sits in when showering. He states she does need assistance getting off the toilet. He does have to assist her with some lower extremity dressing. They do have stairs going into their mobile home and she needs max assistance to get up and down the stairs. The patient needs assistance with all meals and home care tasks. Dr. Beltran was also asking the patient and her about her swallowing needs and they do say that she does struggle with eating and swallowing at times. PAST MEDICAL HISTORY: Past medical history can be found in the patient's medical record. OBJECTIVE FINDINGS: General observations: The patient had a flat affect and seemed to be slightly confused with some of the questions asked of her. Bed mobility: The patient was able to come from supine to sit with mod assist. Transfers: The patient required mod assist to transfer from sit to stand. Once standing, the patient requires max assist x2 as the patient tends to tip toe and loses her balance frequently. Range of motion: While sitting edge of bed the patient was able to move her right upper extremity to 110 degrees of shoulder flexion. Elbow flexion/extension were within normal limits. Wrist flexion/extension were within normal limits. Strength: Strength for shoulder flexion and abduction within the range that she demonstrated was 3+/5. Elbow flexion/extension was 3+/5. Right wrist flexion/extension was 3+/5. Activities of daily living: The patient requires max assist for lower extremity dressing and max assist for upper extremity dressing. She is in a temporary cast along with an arm sling on the left side. Pain: The patient reports that her pain is a 6/10 on the verbal analog scale (0=no pain, 10=worst pain). ASSESSMENT: At this time we are not to be moving the left upper extremity secondary to the fracture. It is highly questionable whether or not her will be able to care for her at home as she is very high needs. She has severe balance difficulties and requires assistance with ADLs. Dr. Beltran and the therapist did discuss doing a modified barium swallow study tomorrow to address her swallowing issues that she has been experiencing. Upon palpation with her hyoid cartilage, she does have a hard clunk when she swallows and could possibly have some pharyngeal weakness. She may benefit from adaptive devices as well as a home evaluation before returning home. Problem List: Decreased ability to complete ADLs Decreased right upper extremity strength Decreased balance Short-Term Goals: To be met by discharge from inpatient: Patient will be able to dress lower extremities with min assist and upper extremities with min assist. Patient will be able to ambulate to the bathroom and complete a toilet transfer and toilet hygiene with min assist. Patient will participate in a modified barium swallow study. Patient will participate on further cognitive assessments. Patient will be able to stand at sink and complete standing activity x3 minutes without loss of balance. Patient will improve right upper extremity strength to 4+/5. Long-Term Goals: To be met following discharge from inpatient: Patient and her are wanting the patient to return home, demonstrating safety and independence with ADLs and functional activities with minimal assistance. TREATMENT PLAN: Patient will be seen B.I.D during the week and one time per day over the weekend as an inpatient to address the above goals and objectives. INITIAL TREATMENT: Treatment today consisted of the initial evaluation. SHAZIA
--- NOTE | 2019-04-23 14:57 | OTI REPORT ---
Thank you for the referral of Gabby Rausch. She was seen on 04/23/19 for an occupational therapy modified barium swallow study. SUBJECTIVE: The patient is a 69-year-old female. The patient is being seen secondary to reports of coughing and choking on foods and liquids and feeling like food gets stuck in her throat and her chest. PAST MEDICAL HISTORY: Past medical history can be found in the patient's medical record. OBJECTIVE FINDINGS: Today the patient was sat in a lateral view. We had the patient start with with thin liquid then go to mechanical soft peaches, then meat, and drinks of thin liquid again. During this time in a lateral view, the patient demonstrated good lip closure. She required slight increased time to chew the meat, but did well with the mechanical soft diet. She had a slight decrease in AP transit with meat, but the rest of the items she did well with. The patient was negative for pocketing and holding or premature spillage. The patient demonstrated good tongue based retraction and good stasis and coating. The patient had a good swallow trigger. She did have mild piecemeal deglutition with regular food items. She was negative for oral and nasal regurgitation. Today the patient did demonstrate good hyoid/thyroid approximation with food and liquid and good hyoid protraction. She had slightly less laryngeal elevation as after the third drink of liquid when mixing food and thin liquid together, she did demonstrate penetration but no aspiration. The patient has good pharyngeal squeeze and was negative for any vallecular or piriformis residuals or pooling. The patient had good UES opening. The patient was lower beyond the UES and demonstrated some mild to moderate esophageal dysmotility. After the penetration of the thin liquid, we then went to nectar thickened liquid. It was found that this was safer and there was no penetration with nectar thickened liquid. In an anterior view, we also looked at piriformis sinus and valleculae and she did very well in this area with meat and nectar thickened liquid. Food does hang up in the upper portion of the esophagus. It did clear better with the nectar thickened liquid, but it is slower and she is demonstrating some dysmotility issues. ASSESSMENT/RECOMMENDATIONS: The patient did demonstrate penetration with thin liquid and is a high aspiration risk. She also demonstrates esophageal motility issues. The patient would benefit from a diet change. Recommendations are as follows: 1. The patient should be on nectar thickened liquids. 2. The patient should be on a mechanical soft diet. 3. The patient and should get educated on esophageal dysmotility and to change her strategy of how she eats meals. 4. The patient should eat small, frequent meals and avoid larger/medium sized meals. 5. The patient should not lay down after eating for approximately 2-3 hours. 6. Liquid medications would be better than pill form. 7. The patient is to sit upright when eating and drinking. 8. The patient is to avoid acidic foods. 9. The patient should exercise before meals instead of after meals. 10. The patient should only swallow one bite of food and alternate food and liquid. 11. The patient should wait at least 15 seconds in between each bite of food or drink of liquid. INITIAL TREATMENT: Treatment today consisted of the modified barium swallow study only. SHAZIA
[2019-04-23] MEDS ORDERED: cefTRIAXone Inj 2 GM in Sodium Chloride 0.9% 100 ML IV SCH (15:00)
--- NOTE | 2019-04-23 15:44 | PT.PROG ---
Progress Note Progress Note: S. patient stated that she is tired this afternoon, however she agreed to go to the therapy gym. O. Patient transferred to the wheelchair and was wheeled to the therapy gym where she performed, long arc quads, heel toe raises, ball squeezes, clam shells, marches all x 10, sit to stands x 5. Patient then ambulated 60 feet to the wheelchair and was returned to her room where she transferred to her bed and was left with alarm and call light. A. Patient tolerated therapy fair, she continues to fatigue quickly and require frequent rest breaks, she was able to ambulate with mod assist x 2. Patient required mod assist with bed mobility and sit to stands. Patient would continue to benefit from skilled therapy to increase strength, endurance and safety. P. Continue POC.
--- NOTE | 2019-04-23 15:57 | PDOC(PROG) ---
Date of Service: 04/23/19 Time of Service: 15:52 Interval History: seen, evaluated twice today has hemoptysis, coughing up blood tinged sputum since surgery. no nausea or vomiting, had aspiration on her MBSS today. discussed with OT and the patient fatigues after a couple of swallows and I can document 3 lbs of weight loss. no chest pain. not short of breath. Objective : Data - Labs CBC and BMP: 04/22/19 05:20 04/22/19 05:20 - Imaging X-Ray Status: Image Reviewed by Me (CXR, on my view, cardiomegaly, probably fluid in left LL, pneumonia in right lower lobe, I think aspiration.), Other (I reviewed results of modified barium swallow study with OT and read radiology report.) Objective : Exam - General General Appearance: No Acute Distress, Cooperative Additional General Exam Details: Vital Signs - Last Taken Temperature 97.8 F 04/23/19 12:14 Pulse Rate 95 04/23/19 12:18 Respiratory Rate 20 04/23/19 12:14 Blood Pressure 139/64 04/23/19 12:14 Pulse Ox 96 04/23/19 12:18 - Eye Eye Exam: No Scleral Icterus - ENT ENT Exam: Mucous Membranes Moist - Neck Neck Exam: JVP is not Raised - Respiratory Respiratory Exam: Breathing Non Labored, Decreased Breath Sounds (right base) - Cardiovascular Cardiovascular Exam: RRR, No Clicks, No Gallops, No Rubs, Systolic Murmur - GI/Abdominal GI/Abdominal Exam: Normal Bowel Sounds, Non Tender, Non Distended, Soft - Extremities Extremities Exam: No Edema Present, No Cyanosis Present Additional Extremities Exam Details: left arm in sling, dressed, clean, dry and intact. - Neurological Neurological Exam: Alert, Oriented x 3, No Facial Droop, Speech Intact / Clear - Psychiatric Additional Psychiatric Exam Details: more expression today. Assessment and Plan - Patient Problems (1) Aspiration pneumonia Current Visit: Yes Status: Acute Code(s): J69.0 - Pneumonitis due to inhalation of food and vomit Qualifiers: Aspiration pneumonia type: due to gastric secretions Laterality: right Lung location: lower lobe of lung Qualified Code(s): J69.0 - Pneumonitis due to inhalation of food and vomit (2) Aortic valve stenosis with insufficiency Current Visit: Yes Status: Chronic Onset Date: 01/14/17 Code(s): I35.2 - Nonrheumatic aortic (valve) stenosis with insufficiency Qualifiers: Cardiac valve disease etiology: etiology unspecified Qualified Code(s): I35.2 - Nonrheumatic aortic (valve) stenosis with insufficiency (3) Parkinsons disease Current Visit: Yes Status: Acute Code(s): G20 - Parkinson's disease (4) Hypercholesterolemia Current Visit: Yes Status: Acute Code(s): E78.00 - Pure hypercholesterolemia, unspecified (5) Left supracondylar humerus fracture Current Visit: Yes Status: Acute Code(s): S42.412A - Displaced simple supracondylar fracture without intercondylar fracture of left humerus, initial encounter for closed fracture Qualifiers: Encounter type: initial encounter Fracture type: closed Qualified Code(s): S42.412A - Displaced simple supracondylar fracture without intercondylar fracture of left humerus, initial encounter for closed fracture (6) Falls Current Visit: Yes Status: Acute Code(s): W19.XXXA - Unspecified fall, initial encounter Qualifiers: Encounter type: subsequent encounter Qualified Code(s): W19.XXXD - Uns pecified fall, subsequent encounter (7) Chronic pain syndrome Current Visit: Yes Status: Acute Code(s): G89.4 - Chronic pain syndrome (8) Degenerative arthritis of lumbar spine Current Visit: Yes Status: Acute Code(s): M47.816 - Spondylosis without myelopathy or radiculopathy, lumbar region Qualifiers: Spinal osteoarthritis complication: without myelopathy or radiculopathy Qualified Code(s): M47.816 - Spondylosis without myelopathy or radiculopathy, lumbar region (9) Chronic GERD Current Visit: Yes Status: Chronic Onset Date: 08/01/16 Code(s): K21.9 - Gastro-esophageal reflux disease without esophagitis (10) Essential hypertension Current Visit: Yes Status: Chronic Onset Date: 08/01/16 Code(s): I10 - Essential (primary) hypertension (11) Type 2 diabetes mellitus Current Visit: Yes Status: Acute Code(s): E11.9 - Type 2 diabetes mellitus without complications Qualifiers: Diabetes mellitus care home insulin use: without dedicated intermodal truck driver use Diabetes mellitus complication status: without complication Qualified Code(s): E11.9 - Type 2 diabetes mellitus without complications (12) Dysphagia Current Visit: Yes Status: Acute Code(s): R13.10 - Dysphagia, unspecified Qualifiers: Dysphagia type: pharyngeal phase Qualified Code(s): R13.13 - Dysphagia, pharyngeal phase - Assessment / Plan Additional Assessment/Plan Details: start rocephin/flagyl for aspiration pneumonia, check labs in AM, oxygen PRN to maintain sats > 91% continue PT and OT for dysphagia, likely due to Parkinson's, work with OT to modify diet, see if we can make gains. has lost three pounds since 09/2018. calorie counts if cannot keep up with caloric needs due to Parkinsons related dysphagia, question need for PEG stop morphine (I discussed risks of continued narcotics with benefits of being off of them with complex medical issues)--the patient and her agree to stop the morphine tomorrow morning. labs in AM complex
--- NOTE | 2019-04-23 16:56 | OT PM DAY ---
Diagnosis : Arm Surgery PM - Occupational Therapy S: The patient reports that her arm was getting fatigued during the exercises today. O: Today the patient worked on upper extremity range of motion and strengthening exercises of the right upper extremity. We worked on bolster walks x8 with the right upper extremity at a 45 degree angle. She did active range of motion in shoulder flexion x10, two pound elbow flexion/extension and pronation/supination x20, and hand strengthening with digi-flex x20 repetitions. A: The patient did fatigue easily but she was willing to complete exercises. P: Continue seeing patient BID during the week and one time per day over the weekend for upper extremity strengthening, ADLs, and overall functional mobility. SHAZIA
[2019-04-23] MEDS: metroNIDAZOLE 500mg (Premix) 500 MG/100 ML BAG IV SCH (17:17)
[2019-04-23] MEDS: Simvastatin Tab 20 MG TAB PO SCH (20:10)
[2019-04-23] MEDS: PANTOPRAZOLE 40 MG TABLET PO SCH (20:10)
[2019-04-24] MEDS: oxyCODONE/APAP 7.5/325 Tab 1 TAB TAB PO PRN ×2 (00:54→10:58)
[2019-04-24] MEDS: metroNIDAZOLE 500mg (Premix) 500 MG/100 ML BAG IV SCH ×2 (00:55→07:38)
[2019-04-24 05:37] LABS: Hematocrit [HCT] 30.2 % (37.0-47.0); Hemoglobin [HGB] 9.7 g/dL (12.0-16.0); MEAN CORPUSCULAR HGB CONC 32.1 g/dL (33-37); MEAN CORPUSCULAR VOLUME 86.8 FL (81-99); MEAN PLATELET VOLUME 10.8 FL (7.4-12.2); RED BLOOD COUNT 3.48 10^6/uL (4.20-5.40)
[2019-04-24 05:45] LABS: BUN/CREATININE RATIO 17.69 (6-20)
[2019-04-24 06:12] LABS: PLATELET MORPHOLOGY COMMENT NORMAL MORPHOLOGY (NORM); RBC MORPHOLOGY COMMENT SEE COMMENTS (NORM); WBC MORPHOLOGY COMMENT NORMAL MORPHOLOGY (NORM)
[2019-04-24 06:13] LABS: BAND NEUTROPHILS % 0 % (0-10); BASOPHILS % (MANUAL) 1 % (0-1); EOSINOPHILS % (MANUAL) 2 % (0-8); MONOCYTES % (MANUAL) 10 % (0-12); NEUTROPHILS % (MANUAL) 65 % (50-80)
[2019-04-24] MEDS: FUROSEMIDE 20 MG TABLET PO SCH ×2 (06:50→12:37)
--- NOTE | 2019-04-24 08:26 | ORTHO.PROG ---
Last Taken Vital Signs: Vital Signs - Last Taken Temperature 97.7 F 04/24/19 06:43 Pulse Rate 77 04/24/19 06:59 Respiratory Rate 16 04/24/19 06:59 Blood Pressure 141/55 04/24/19 06:43 Pulse Ox 93 04/24/19 06:43 Subjective: Patient just got off commode. States she is not having any elbow pain. Being treated currently for aspiration pneumonia right lung. Also weaning off of her chronic oral morphine. Objective: Vital signs stable patient afebrile. Left upper extremity is splinted. Neurovascular exam intact. Assessment: Impression: Postop day 3 status post ORIF left distal humerus fracture. The humerus seems to be doing well. She is being treated for pneumonia however. Plan: Plan: We'll defer to the hospitalist service for further recommendations regarding her lungs and overall health. Appreciate their help.
[2019-04-24] MEDS ORDERED: DOCUSATE 100 MG CAPSULE PO SCH (09:00)
[2019-04-24] MEDS: RASAGILINE MESYLATE 1 MG PO SCH (09:15)
[2019-04-24] MEDS: Calcium/Vit D 600mg/400u Tab 1 TAB TABLET PO SCH (09:15)
[2019-04-24] MEDS: LUBIPROSTONE 8 MCG PO SCH (09:15)
[2019-04-24] MEDS: BuPROPion SR Tab 150 MG TAB PO SCH (09:16)
[2019-04-24] MEDS: GABAPENTIN 100 MG CAPSULE PO SCH (09:16)
[2019-04-24] MEDS: Metoclopramide Tab 10 MG TAB PO SCH ×2 (09:16→12:37)
[2019-04-24] MEDS: Carbidopa/Levodopa 25/100mg Tab PO SCH ×2 (09:16→12:37)
--- NOTE | 2019-04-24 10:31 | OT.PROG ---
Progress Note Progress Note: S: pt stated that she had just gotten into bed but agreed to therapy services. O: tx consisted of bed mobility from supine to EOb with MOD A for sitting up and positioning self at EOB. pt completed UE AROM in all planes of motion x 15 each, pt then completed bed mobility from EOB to supine with MOD A for guidance down to supine and lifting lEs into bed. pt then needed MAX A x2 for positioning self in bed. A: pt tolerated session well. pts activity tolerance is low at this time but continues to slowly make gains towards established goals. P: continue POC
[2019-04-24 11:49] VITALS: BP 142/61; RESP 14; TEMP 98.5; O2SAT 98
--- NOTE | 2019-04-24 12:03 | PT.PROG ---
Progress Note Progress Note: S. Patient stated that she is very tired after being busy this morning with nursing. O. Patient ambulated 10 feet in her room then performed seated long arc quads, marches, heel toe raises, and pillow squeezes all x 10. Patient was left with OT for further therapy. A. Patient tolerated therapy fair, she required mod assist x 2 with sit to stand transfer and ambulation, she has a shuffling gait pattern. She would continue to benefit from skilled therapy to increase strength, endurance and safety at this time. P. Continue POC.
--- NOTE | 2019-04-24 12:55 | DCSUMMARY ---
Hospitalization Summary Hospital Course: Final Discharge Diagnosis: Current Visit Problems Problem Status Onset Code Hypercholesterolemia Acute E78.00 Parkinsons disease Acute G20 Falls Acute W19.XXXA Left supracondylar humerus fracture Acute S42.412A Chronic pain syndrome Acute G89.4 Degenerative arthritis of lumbar spine Acute M47.816 Dysphagia Acute R13.10 Aspiration pneumonia Acute J69.0 Type 2 diabetes mellitus Acute E11.9 Essential hypertension Chronic 08/01/16 I10 Chronic GERD Chronic 08/01/16 K21.9 Aortic valve stenosis with insufficiency Chronic 01/14/17 I35.2 Diagnostic Data, Laboratory Data, and Procedures of Signifigance: Laboratory Results 04/23/19 04/24/19 04/24/19 16:30 04:24 04:24 WBC 8.41 RBC 3.48 L Hgb 9.7 L Hct 30.2 L MCV 86.8 MCH 27.9 MCHC 32.1 L RDW Std Deviation 43.6 RDW Coeff of Jose 14.1 Plt Count 233 MPV 10.8 Neutrophils % (Manual) 65 Band Neutrophils % 0 Lymphocytes % (Manual) 22 Monocytes % (Manual) 10 Eosinophils % (Manual) 2 Basophils % (Manual) 1 Metamyelocytes % Not Reportable Myelocytes % Not Reportable Promyelocytes % Not Reportable Blast Cells Not Reportable WBC Morphology Comment Normal morphology Plt Morphology Comment Normal morphology RBC Morph Comment See comments Sodium 140 Potassium 3.9 Chloride 103 Carbon Dioxide 29 Anion Gap 8 BUN 23 H Creatinine 1.3 H Estimated GFR 41 BUN/Creatinine Ratio 17.69 Glucose 111 H Calculated Osmolality 294.0 H Calcium 8.5 L NT-Pro-B Natriuret Pep 4820 H Ur Strep pneumoniae Ag Negative History and Physical pertinent to Admission: Past Medical History Medical History: 1. Parkinson's disease. 2. Aortic stenosis moderate to severe last echocardiogram 2016. 3. History of carotid artery disease status post right carotid endarterectomy, notably not on any antiplatelets but recent ultrasound in 2016 did not reveal any evidence of carotid artery disease at that time. 4. Hypertension. 5. Hypercholesterolemia. 6. Based on my review of record, chronic kidney disease, stage III creatinine. clearance around 40 mL/m. 7. Diabetes mellitus, type II, diet controlled. 8. Chronic constipation Surgical History: 1. Tubal ligation. 2. Wrist surgery. 3. Cholecystectomy. 4. Status post appendectomy. 5. Cataracts Pertinent Family History: No prior history of Parkinson's in the family. She has a daughter that of ovarian cancer. Past Social History: Patient is . Had 3 children but 2 unfortunately a past. She does not smoke or drink alcohol. Lives in [place], [place]. 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 Tobacco Use: Never Smoker Course of Hospitalization: This very pleasant 69-year-old female with history of carotid artery disease status post right carotid endarterectomy, hypertension, diet-controlled diabetes, recently diagnosed Parkinson's disorder, amongst other issues, who is accompanied by her here post ORIF of the left distal humerus. Her Parkinson's meds were restarted please see the H&P for details. And she is doing well from that standpoint at this time she also developed aspiration pneumonia. And is on antibiotics and hemodynamically stable she is developing pulmonary edema and pleural effusions most likely from her severe aortic stenosis her last echo was in 2017 and was read as moderate in [facility]. She did have an echo yesterday at this hospital results are pending. After discussing the case with Dr. Lau and the patient's family because of her worsening congestive heart failure and pulmonary edema and elevated BNP and mild BUN and creatinine elevation she needs further evaluation from cardiology to determine the status and her options in regard to the aortic stenosis. I d iscussed this with the patient and his family we have recommended transferred to [facility] for specialty care they agreed. Discussed with nursing as well she was accepted by Dr. Dickey who will consult hospitalist for other medical issues and other subspecialties as needed. On the date of discharge, the patient was examined: Gen.: [No acute distress, alert, nontoxic] Heart: [Regular rate and rhythm, no murmurs, clicks, gallops, or rubs] Lungs: [Clear to auscultation bilaterally, breathing is nonlabored] Abdomen/GI: [Normal tones on auscultation, soft, nontender, nondistended] Musculoskeletal/extremities: [No clubbing, cyanosis, or edema] Vitals reviewed and are listed below Assessment and Plan: 1. As per discharge assessments above 2. Disposition: [facility] under the care of Dr. Dickey 3. Condition on discharge, stable and improved. 4. Diet: regular diet 5. Activities: resume normal activities 6. Follow-Up: 1. [PCP] 2. 7. Medications at the Time of Discharge: Active Medications Generic Name Dose Route Start Last Admin Trade Name Freq PRN Reason Stop Dose Admin Acetaminophen 650 mg 04/21/19 20:33 Tylenol PO Q6H PRN Pain or Fever Bupropion HCl 150 mg 04/21/19 21:00 04/24/19 09:16 Wellbutrin Sr Tab PO 150 mg BID OSIEL Administration Calcium Carbonate 1 - 2 tab 04/21/19 20:33 Tums PO Q6H PRN Heartburn Calcium/Vitamin D 1 tab 04/22/19 09:00 04/24/19 09:15 Calcium 600mg + D 400u Tab PO 1 tab DAILY OSIEL Administration Carbidopa/Levodopa 2 tab 04/21/19 21:00 04/24/19 12:37 Sinemet 25/100mg Tab PO 2 tab QID OSIEL Administration Docusate Sodium 100 mg 04/21/19 20:33 04/23/19 08:33 Colace PO 100 mg BID PRN Administration Constipation Docusate Sodium 100 mg 04/24/19 09:00 04/24/19 09:16 Colace PO 100 mg BID OSIEL Administration Furosemide 20 mg 04/24/19 07:00 04/24/19 12:37 Lasix PO 20 mg BID@0700,1300 OSIEL Administration Gabapentin 100 mg 04/21/19 21:00 04/24/19 09:16 Neurontin PO 100 mg TID OSIEL Administration Sodium Chloride 25 mls @ 200 mls/hr 04/21/19 20:33 04/24/19 00:55 Normal Saline 0.9% IV 200 mls/hr .Post Infusion PRN Administration No Primary IV for Flush ONLY Ceftriaxone Sodium 2 gm/ 100 mls @ 200 mls/hr 04/23/19 15:00 04/23/19 16:17 Sodium Chloride IV 200 mls/hr Q24H OSIEL Administration Metronidazole 500 mg in 100 mls @ 100 mls/hr 04/23/19 16:00 04/24/19 07:38 Flagyl 500mg (Premix) IV 100 mls/hr Q8H OSIEL Administration Lidocaine HCl 0.5 ml 04/21/19 20:33 Lidocaine Buffered Inj SUBD ONCE PRN IV Starts Lidocaine HCl 10 ml 04/23/19 14:23 Xylocaine Uro-Ject 2% TOPICAL ONCE PRN Discomfort catheter insertion Metoclopramide HCl 10 mg 04/21/19 21:00 04/24/19 12:37 Reglan PO 10 mg QID OSIEL Administration Own Med : 8 mcg 04/21/19 21:00 04/24/19 09:15 Lubiprostone [ PO 8 mcg Amitiza] 8 Mcg BID OSIEL Administration Own Med : Rasagiline 1 mg 04/22/19 09:00 04/24/19 09:15 Mesylate 1 Mg PO 1 mg Tablet DAILY OSIEL Administration Ondansetron HCl 4 mg 04/21/19 20:33 Zofran Inj IVP Q4H PRN NAUSEA / VOMITING Oxycodone/Acetaminophen 1 - 2 tab 04/21/19 18:54 04/24/19 10:58 Percocet 7.5/325 Tab PO 1 tab Q4H PRN Administration Pain Pantoprazole Sodium 40 mg 04/21/19 21:00 04/23/19 20:10 Protonix PO 40 mg BEDTIME OSIEL Administration Simvastatin 20 mg 04/21/19 21:00 04/23/19 20:10 Zocor PO 20 mg BEDTIME OSIEL Administration 8. Time, care, counseling and coordination of care for this discharge is greater than 30 minutes. Exam - Vitals Vital Signs: Vital Signs Temperature 98.5 F Temperature Source Oral Pulse Rate [Pulse Oximeter] 82 Pulse Rate [right hand] 82 Pulse Rate [pulse ox] 77 Pulse Rate 81 Respiratory Rate 14 Blood Pressure [Right Arm] 142/61 Blood Pressure 136/62 Pulse Ox [right hand] 98 Pulse Ox [pulse ox] 93 Pulse Ox 98 Oxygen Flow Rate [right hand] 1 Oxygen Flow Rate [pulse ox] 1 Oxygen Flow Rate 1 Oxygen Delivery Method [right Nasal Cannula hand] Oxygen Delivery Method [pulse Room Air ox] Oxygen Delivery Method Nasal Cannula Height 5 ft 3 in Weight 136 lb
== END 2019-04-24 13:03 | disposition short-term general hospital (02) | DRG 492 ==
LOC: OPS 11:15 → MED/SURG 18:40
PROVIDERS: ADMIT Orthopaedic Surgery; ATTEND Family Medicine